=== PATIENT | female | born 1955 | race Caucasian/White ===

== ENCOUNTER 2017-07-13 16:54 | Emergency (ER) | payer OTHER ==
[2017-07-13] MEDS ORDERED: ALPRAZolam TAB* 0.25 MG PO ONE ×2 (17:28→19:12)
[2017-07-13] MEDS ORDERED: NS 0.9% 1000 ML* 1,000 ML IV ONE (17:28)
[2017-07-13 17:55] LABS: ABS Basophils 0.1 10^3/ul (0-0.2); ABS Eosinophils 0.2 10^3/ul (0-0.6); ABS Lymphocytes 2.2 10^3/ul (1.0-4.8); ABS Monocytes 0.8 10^3/ul (0-0.8); ABS Neutrophils 6.8 10^3/ul (1.5-7.7); ABS Nucleated RBC 0 10^3/ul; Eosinophil % 1.5 % (0-6); Hematocrit 37 % (35-47); Hemoglobin 12.3 g/dl (12.0-16.0); Lymphocyte % 21.9 % (25-47); Mean Corpuscular HGB Conc 33 g/dl (31-36); Mean Corpuscular Hemoglobin 28 pg (27-31); Mean Corpuscular Volume 86 fL (80-97); Mean Platelet Volume 9.1 um3 (7.4-10.4); Nucleated Red Blood Cells % 0; Platelet Count 197 10^3/ul (150-450); Red Blood Count 4.33 10^6/ul (4.0-5.4); Red Cell Distribution Width 13 % (10.5-15)
[2017-07-13 18:01] LABS: INR 0.95 (0.77-1.02)
[2017-07-13 18:13] LABS: EGFR Non-African American 63.9 (>60)
[2017-07-13 19:54] VITALS: BP 134/70
--- NOTE | 2017-07-13 20:28 | ED ---
Fer Quiros Stephanie, scribed for Julio Cesar Nuñez MD on 07/13/17 at 1727 . Allergic Reaction/Systemic - HPI Summary HPI Summary: The pt is a 61 y/o F presenting to the ED with c/o tremors that began on . Symptoms include vomiting and diaphoresis. The pt states she has a growth on her L hand. The pt states she recently had an xray of her L hand and she is scheduled for an MRI. The pt was given Tramadol for the pain. On 07/11/17, the pt took tramadol at 03:30 and a few hours later, she experienced severe tremors accompanied with vomiting. She reports taking Tramadol 2 other times and approximately 2 hours after taking the tramadol each time, she had the same reaction of tremors accompanied with vomiting. The pt took her last dose of ibuprofen at 12:15 today. The pt denies fever and chills. Her pain is rated as a 10 in severity. - History of Current Complaint Chief Complaint: EDAllergicReaction Time Seen by Provider: 07/13/17 17:10 Hx Obtained From: Patient, Family/[employer] Developer - Onset/Duration: Gradual Onset, Started days ago - 6, Still Present Timing: Intermittent - after taking tramadol Severity Currently: Severe Pain Intensity: 10 Pain Scale Used: 0-10 Numeric Location: Diffuse Aggravating Factor(s): OTC Meds - Tramadol Alleviating Factor(s): Nothing Associated Signs And Symptoms: Positive: Vomiting, Other: - tremors - Allergies/Home Medications Allergies/Adverse Reactions: Allergies Allergy/AdvReac Type Severity Reaction Status Date / Time caffeine Allergy Shakes Verified 07/13/17 17:23 codeine Allergy Constipatio Verified 07/13/17 17:23 n magnesium salicylate Allergy Headache Verified 07/13/17 17:23 Penicillins Allergy Hives Verified 07/13/17 17:23 Sulfa (Sulfonamide Allergy Rash Verified 07/13/17 17:23 Antibiotics) BEESTINGS Allergy Severe Anaphylatic Uncoded 07/13/17 17:05 Shock PMH/Surg Hx/FS Hx/Imm Hx Sensory History: Denies: Hx Legally Blind EENT History: Denies: Hx Deafness Psychiatric History: Reports: Hx Anxiety - Cancer History Hx Chemotherapy: No Hx Radiation Therapy: No - Surgical History Surgery Procedure, Year, and Place: OVARIAN CYSTECTOMY Infectious Disease History: No Infectious Disease History: Denies: Traveled Outside the [place] in Last 30 Days - Family History Known Family History: Positive: Unknown - The pt denies any fhx. - Social History Occupation: Employed Full-time Lives: With Family Alcohol Use: Rare Hx Substance Use: No Substance Use Type: Reports: None Hx Tobacco Use: No Smoking Status (MU): Never Smoked Tobacco Have You Smoked in the Last Year: No Review of Systems Positive: Skin Diaphoresis. Negative: Fever, Chills Positive: Vomiting Neurological: Other - tremors Negative: Slurred Speech All Other Systems Reviewed And Are Negative: Yes Physical Exam - Summary Physical Exam Summary: General: well-appearing, no pain distress Skin: warm, color reflects adequate perfusion, dry Head: normal Eyes: EOMI, DUNIA ENT: normal Neck: supple, nontender Respiratory: CTA, breath sounds present Cardiovascular: RRR Abdomen: soft, nontender Bowel: present Musculoskeletal: strength/ROM intact, L second MP joint is swollen and erythematous Neurological: normal, sensory/motor intact, A&O x3 Psychological: affect/mood appropriate Triage Information Reviewed: Yes Vital Signs On Initial Exam: Initial Vitals Temp Pulse Resp BP Pulse Ox 98.0 F 71 20 126/57 100 07/13/17 17:00 07/13/17 17:00 07/13/17 17:00 07/13/17 17:00 07/13/17 17:00 Vital Signs Reviewed: Yes Diagnostics - Vital Signs Vital Signs Temp Pulse Resp BP Pulse Ox 07/13/17 17:03 69 99 07/13/17 17:02 127/68 07/13/17 17:00 98.0 F 71 20 126/57 100 - Laboratory Lab Results: Lab Results 07/13/17 07/13/17 07/13/17 Range/Units 17:46 17:46 17:46 WBC 10.0 (3.5-10.8) 10^3/ul RBC 4.33 (4.0-5.4) 10^6/ul Hgb 12.3 (12.0-16.0) g/dl Hct 37 (35-47) % MCV 86 (80-97) fL MCH 28 (27-31) pg MCHC 33 (31-36) g/dl RDW 13 (10.5-15) % Plt Count 197 (150-450) 10^3/ul MPV 9.1 (7.4-10.4) um3 Neut % (Auto) 68.1 (38-83) % Lymph % (Auto) 21.9 L (25-47) % [place] % (Auto) 7.9 H (0-7) % Eos % (Auto) 1.5 (0-6) % Baso % (Auto) 0.6 (0-2) % Absolute Neuts (auto) 6.8 (1.5-7.7) 10^3/ul Absolute Lymphs (auto) 2.2 (1.0-4.8) 10^3/ul Absolute Monos (auto) 0.8 (0-0.8) 10^3/ul Absolute Eos (auto) 0.2 (0-0.6) 10^3/ul Absolute Basos (auto) 0.1 (0-0.2) 10^3/ul Absolute Nucleated RBC 0 10^3/ul Nucleated RBC % 0 INR (Anticoag Therapy) 0.95 (0.77-1.02) Sodium 138 L (139-145) mmol/L Potassium 3.9 (3.5-5.0) mmol/L Chloride 104 (101-111) mmol/L Carbon Dioxide 26 (22-32) mmol/L Anion Gap 8 (2-11) mmol/L BUN 16 (6-24) mg/dL Creatinine 0.90 (0.51-0.95) mg/dL Est GFR ( Amer) 82.1 (>60) Est GFR (Non-Af Amer) 63.9 (>60) BUN/Creatinine Ratio 17.8 (8-20) Glucose 108 H (70-100) mg/dL Lactic Acid (0.5-2.0) mmol/L Calcium 9.3 (8.6-10.3) mg/dL Total Bilirubin 0.50 (0.2-1.0) mg/dL AST 14 (13-39) U/L ALT 10 (7-52) U/L Alkaline Phosphatase 59 (34-104) U/L C-Reactive Protein 1.77 (< 5.00) mg/L Total Protein 6.9 (6.4-8.9) g/dL Albumin 3.9 (3.2-5.2) g/dL Globulin 3.0 (2-4) g/dL Albumin/Globulin Ratio 1.3 (1-3) TSH 3.12 (0.34-5.60) mcIU/mL 07/13/17 Range/Units 17:46 WBC (3.5-10.8) 10^3/ul RBC (4.0-5.4) 10^6/ul Hgb (12.0-16.0) g/dl Hct (35-47) % MCV (80-97) fL MCH (27-31) pg MCHC (31-36) g/dl RDW (10.5-15) % Plt Count (150-450) 10^3/ul MPV (7.4-10.4) um3 Neut % (Auto) (38-83) % Lymph % (Auto) (25-47) % [place] % (Auto) (0-7) % Eos % (Auto) (0-6) % Baso % (Auto) (0-2) % Absolute Neuts (auto) (1.5-7.7) 10^3/ul Absolute Lymphs (auto) (1.0-4.8) 10^3/ul Absolute Monos (auto) (0-0.8) 10^3/ul Absolute Eos (auto) (0-0.6) 10^3/ul Absolute Basos (auto) (0-0.2) 10^3/ul Absolute Nucleated RBC 10^3/ul Nucleated RBC % INR (Anticoag Therapy) (0.77-1.02) Sodium (139-145) mmol/L Potassium (3.5-5.0) mmol/L Chloride (101-111) mmol/L Carbon Dioxide (22-32) mmol/L Anion Gap (2-11) mmol/L BUN (6-24) mg/dL Creatinine (0.51-0.95) mg/dL Est GFR ( Amer) (>60) Est GFR (Non-Af Amer) (>60) BUN/Creatinine Ratio (8-20) Glucose (70-100) mg/dL Lactic Acid 1.5 (0.5-2.0) mmol/L Calcium (8.6-10.3) mg/dL Total Bilirubin (0.2-1.0) mg/dL AST (13-39) U/L ALT (7-52) U/L Alkaline Phosphatase (34-104) U/L C-Reactive Protein (< 5.00) mg/L Total Protein (6.4-8.9) g/dL Albumin (3.2-5.2) g/dL Globulin (2-4) g/dL Albumin/Globulin Ratio (1-3) TSH (0.34-5.60) mcIU/mL Result Diagrams: 07/13/17 17:46 07/13/17 17:46 Lab Statement: Any lab studies that have been ordered have been reviewed, and results considered in the medical decision making process. Re-Evaluation - Re-Evaluation First Eval Re-Evaluation Time: 19:10 Change: Improved - The pt states she feels much more relaxed. Allergic Reaction Course/Dx - Course Course Of Treatment: IMPROVED IN ED AFTER XANAX 0.25MG IN ED. F/U PMD; RETURN IF WORSE. - Diagnoses Provider Diagnoses: Tremor Discharge - Sign-Out/Discharge Documenting (check all that apply): Discharge - Discharge Plan Condition: Stable Disposition: HOME Prescriptions: ALPRAZolam TAB* [Xanax TAB*] 0.25 mg PO Q6H PRN #20 tab MDD 2MG PRN Reason: Tremors Patient Education Materials: Tremors (ED) Referrals: Silvana Rutherford MD [Primary Care Provider] - Additional Instructions: FOLLOW UP WITH YOUR DOCTOR. RETURN TO THE EMERGENCY DEPARTMENT FOR ANY WORSENING OF YOUR CONDITION OR QUESTIONS OR CONCERNS. - Billing Disposition and Condition Condition: STABLE Disposition: HOME The documentation as recorded by the Fer jones Stephanie accurately reflects the service I personally performed and the decisions made by , Julio Cesar Nuñez MD.
== END 2017-07-13 19:31 | disposition home or self-care (01) ==
LOC: ED 16:54
DX: R11.10 Vomiting, unspecified (principal); R25.1 Tremor, unspecified
CPT/HCPCS: 36415; 80053; 83605; 84443; 85025; 85610; 86140; 99283; A9270-GY

== ENCOUNTER 2017-07-24 09:13 | Day surgery (SDC) | payer OTHER ==
[~2017-07-24 09:13] MED LIST: Buffered Lidocaine 0.9% SYRIN* 5 ML/SYR SYRINGE INTRADERM ONE; DiMENhydriNATE IV* 50 MG/ML VIAL IV PUSH PRN; Famotidine TAB* 20 MG PO ONE; Naloxone* 0.4 MG/ML 1 ML VIAL IV PRN; PROCHLORPERAZINE INJ 5 MG/ML 2 ML VIAL IV PRN; fentaNYL* 50 MCG/ML 2 ML VIAL (100 MCG VIAL) IV PRN; oxyCODONE/Acetamin 5/325 MG* TAB PO PRN
[2017-07-24] MEDS ORDERED: Clindamycin 900 MG IVPREMIX(* 900 MG/50 ML SDV IV ONE (09:45)
[2017-07-24] MEDS ORDERED: Midazolam* 1 MG/ML 5 ML VIAL (5 MG) ONE (09:49)
[2017-07-24] MEDS ORDERED: fentaNYL* 50 MCG/ML 2 ML VIAL (100 MCG VIAL) ONE (09:49)
[2017-07-24] MEDS ORDERED: Famotidine TAB* 20 MG ONE (09:52)
[2017-07-24] MEDS ORDERED: Propofol* 10 MG/ML 20 ML BTL IV PUSH ONE (10:21)
[2017-07-24] MEDS ORDERED: Bupivacaine 0.25% SDV* 30 ML ONE (11:04)
[2017-07-24] MEDS ORDERED: Ondansetron INJ* 2 MG/ML VIAL ONE (11:22)
[2017-07-24] MEDS ORDERED: Lidocaine 2% PF * 5 ML VIAL ONE (11:22)
[2017-07-24] MEDS ORDERED: Dexamethasone IV* 4 MG/ML 1 ML (4 MG) ONE (11:22)
[2017-07-24] MEDS ORDERED: Flumazenil* 0.1 MG/ML 5 ML MDV ONE (11:47)
[2017-07-24 12:10] VITALS: BP 111/63
--- NOTE | 2017-07-24 18:35 | OP ---
DATE OF OPERATION: 07/24/17 - [facility] DATE OF : 57 SURGEON: Carlos Antoine MD [place] [facility] ATTENDANT: CATHIE Fernandez ANESTHESIOLOGIST: Dr. Joseph ANESTHESIA: Local MAC. PRE-OP DIAGNOSIS: Left index finger periarticular metacarpophalangeal mass. POST-OP DIAGNOSIS: Left index finger periarticular metacarpophalangeal mass. PROCEDURE PERFORMED: Excision of deep left hand 2nd MCP joint periarticular calcified soft tissue mass. INDICATIONS: Patsy is 61 years old. She has an intensely painful periarticular mass. It was calcified on the x-rays. MRI showed some edema about the area, but nothing aggressive in the form of bony erosion or significant adjacent soft tissue erosion. I talked to her about her surgical options. She wanted to have the mass excised. The pain had been subsiding a bit. ESTIMATED BLOOD LOSS: 2 mL. COMPLICATIONS: None. FINDINGS: There was a yellowish soft tissue mass just proximal to the radial collateral ligament of the 2nd MCP joint and just proximal to the radial sagittal band directly adjacent to the periosteum of the second metacarpal neck , but without any bony erosion. DESCRIPTION OF PROCEDURE: Patsy was seen in the preoperative holding area. The correct side, site, and procedure were identified. We came back to the operating room and the arm was prepped and draped in the usual fashion. She had the area anesthetized with 0.25% plain Marcaine. A time-out was performed. I began by exsanguinating the arm with the Esmarch and the tourniquet was inflated to 250 mmHg. I made a curvilinear incision over the dorsoradial aspect of the 2nd MCP joint. Dissection was carried down. Full-thickness flaps were raised off of the extensor tendon including the radial sagittal band. The mass appears very obvious sitting deep to the fascia just proximal and extending slightly under the radial sagittal band. I opened up the fascia just adjacent to the paratenon over the 2nd finger extensor tendons. I began a marginal excision of the mass. This was carried out. I took the mass off the periosteum deeply and then it was sitting adjacent to the intrinsic tendons on the radial site of the index finger MCP joint. The radial sagittal band was retracted distally and the mass was excised off the radial collateral ligament deeply. Once I had it completely excised, I handed off the specimen. I spent part of it for crystal analysis. 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 The wound was copiously irrigated out. The bed of the mass was curetted and irrigated again. I flexed and extended fingers multiple times. There was no subluxation of the extensor tendon that was completely normal over the dorsum of the 2nd MCP joint. The radial sagittal band was intact. I therefore irrigated out the wound. Skin was closed with 4-0 nylon suture. The wound was dressed with Xeroform, 4x4, sterile Webril and an Angel bandage. She was woken up and taken to recovery room in stable condition. [id number]/CPS #: [id number]
--- NOTE | 2017-07-25 15:08 | RAD ---
INDICATION: Left hand excision, mass. No other history is provided. COMPARISONS: None relevant TECHNIQUE: Fluoroscopy was provided for a surgical procedure. Total fluoroscopy time is: 6 seconds FINDINGS: Spot images are submitted of the hand, with soft tissue defect along the second metatarsal head IMPRESSION: FLUOROSCOPY WAS PROVIDED FOR A SURGICAL PROCEDURE CPT II Codes: G9500
== END 2017-07-24 12:35 | disposition home or self-care (01) ==
LOC: OREAST 09:13
PROVIDERS: ATTEND Orthopaedic Surgery Hand Surgery
DX: D48.1 Neoplasm of uncertain behavior of connective and other soft tissue (principal)
CPT/HCPCS: 76000; 88305; 88341; 88342; A9270-GY; J1100; J2250; J2405; J2704; J3010